=== PATIENT | female | born 1960 ===

== ENCOUNTER 2017-01-21 17:53 | Emergency (ER) | payer MEDICARE, MEDICAID ==
[2017-01-21 17:54] VITALS: BMI 30.9
[2017-01-21] MEDS ORDERED: Sodium Chloride 0.9% 1,000 ML IV ONE (18:59)
[2017-01-21] MEDS ORDERED: Iohexol 240 (50 ml) PO ONE (19:04)
[2017-01-21 19:11] LABS: EOS % 0.4 % (0.0-4.0); HEMATOCRIT 35.4 % (34.0-47.0); LYMPH # 0.4 K/uL (1.0-4.3); LYMPH % 5.3 % (20.0-40.0); MEAN CELL VOLUME 89.3 fL (81.0-99.0); MEAN CORPUSCULAR HEMOGLOBIN 29.4 pg (27.0-31.0); MEAN PLATELET VOLUME 9.6 fL (7.2-11.7); MONO # 0.3 K/uL (0.0-0.8); MONO % 4.4 % (0.0-10.0); PLATELET COUNT 253 K/uL (130-400); RED CELL DISTRIBUTION WIDTH 13.5 % (11.5-14.5); WHITE BLOOD COUNT 7.1 K/uL (4.8-10.8)
[2017-01-21] MEDS ORDERED: Iohexol 240 (50 ml) ONE (19:15)
[2017-01-21] MEDS ORDERED: Sodium Chloride 0.9% 1,000 ML ONE (19:15)
[2017-01-21 19:18] LABS: CHLORIDE 98 mmol/L (98-107); POTASSIUM 3.3 mmol/L (3.6-5.2); SODIUM 136 mmol/L (132-148)
[2017-01-21 19:20] LABS: BILIRUBIN,TOTAL 0.5 mg/dL (0.2-1.3); CARBON DIOXIDE 28 mmol/L (22-30); GFR AFRICAN-AMERICAN > 60
[2017-01-21 19:21] LABS: ALB/GLOB RATIO 1.5 (1.0-2.1); ALKALINE PHOSPHATASE 62 U/L (38-126); ALT/SGPT 41 U/L (9-52); AST/SGOT 31 U/L (14-36); BLOOD UREA NITROGEN 15 mg/dL (7-17); CALCIUM 8.5 mg/dl (8.6-10.4); GLUCOSE,RANDOM 124 mg/dL (65-105); TOTAL PROTEIN 7.1 g/dL (6.3-8.3)
[2017-01-21 20:01] LABS: EOSINOPHIL 1 % (0-4); NEUTROPHIL 91 % (50-75); TOTAL CELLS COUNTED 100
--- NOTE | 2017-01-21 20:03 | C.PDOC ---
History Of Present Illness 56 year old female presents to the ED with complaints of epigastric pain that extends across the mid upper abdomen beginning yesterday. Patient states she is also experiencing vomiting and diarrhea, with 10 episodes of vomiting since yesterday and about 5-6 episodes of watery, non bloody diarrhea. She notes she is unable to tolerate any food by mouth and has a history of chronic constipation. Patient states had been on stool softeners but in September started taking polyethylene glycol three times a day. She feels no relief and still does not have normal bowel movements. She denies any fever, lightheadedness, or other complaints at this time. Time Seen by Provider: 01/21/17 18:55 Chief Complaint (Nursing): Abdominal Pain History Per: Patient History/Exam Limitations: no limitations Onset/Duration Of Symptoms: Days (since yesterday ) Current Symptoms Are (Timing): Still Present Location Of Pain/Discomfort: Epigastric, Other (pain to upper abdomen also ) Quality Of Discomfort: "Pain" Associated Symptoms: Vomiting, Diarrhea. denies: Fever, Chills Recent travel outside of the [place]: No Abnormal Vaginal Bleeding: No Past Medical History Reviewed: Historical Data, Nursing Documentation, Vital Signs Vital Signs: Last Vital Signs Temp 100.5 F H 01/21/17 22:40 Pulse 83 01/21/17 22:40 Resp 17 01/21/17 22:40 BP 135/63 01/21/17 22:40 Pulse Ox 96 01/21/17 22:40 - Medical History PMH: Anxiety, Arthritis, Bipolar Disorder, Depression, Diabetes (type 2), GERD, HTN Surgical History: (4 ) Other Surgeries: Hysterectomy Family History: States: Unknown Family Hx - Social History Hx Tobacco Use: Yes (pack/day for 3 yrs) Hx Alcohol Use: No Hx Substance Use: No - Immunization History Hx Tetanus Toxoid Vaccination: No Hx Influenza Vaccination: No Hx Pneumococcal Vaccination: No Review Of Systems Constitutional: Negative for: Fever, Chills, Sweats Cardiovascular: Negative for: Chest Pain, Palpitations Respiratory: Negative for: Cough, Shortness of Breath Gastrointestinal: Positive for: Vomiting (10 episodes since yesterday), Abdominal Pain (epigastric), Diarrhea (approximately 5-6 episodes since yesterday ) Neurological: Negative for: Headache Physical Exam - Physical Exam Appears: Non-toxic, No Acute Distress Skin: Warm, Dry Head: Atraumatic Oral Mucosa: Moist Neck: Supple Chest: Symmetrical, No Deformity Cardiovascular: Rhythm Regular Respiratory: No Rales, No Rhonchi, No Stridor, No Wheezing Gastrointestinal/Abdominal: Soft, Tenderness (epigastric tenderness), No Distention, No Guarding, No Rebound Extremity: Normal ROM, No Tenderness Neurological/Psych: Oriented x3 ED Course And Treatment - Laboratory Results Result Diagrams: 01/21/17 19:07 01/21/17 19:07 Lab Interpretation: No Acute Changes Interpretation Of ECG: Patient still c/o generalized abdominal pain. CT abdomen and pelvis ordered. O2 Sat by Pulse Oximetry: 98 (room air ) Pulse Ox Interpretation: Normal - CT Scan/US CT ABDOMEN AND ABDOMEN W/ IV CONTRAST Other Rad Studies (CT/US): Read By Radiologist, Radiology Report Reviewed CT/US Interpretation: EXAM: CT Abdomen and Pelvis With Intravenous Contrast. CLINICAL HISTORY: 56 years old, female; Pain; Abdominal pain; Generalized; Additional info: Abd pain. TECHNIQUE: Axial computed tomography images of the abdomen and pelvis with intravenous contrast. This CT. exam was performed using one or more of the following dose reduction techniques: automated. exposure control, adjustment of the mA and/or kV according to patient size, and/ or use of iterative. reconstruction technique. Coronal and sagittal reformatted images were created and reviewed. CONTRAST: 100 mL of [id number] administered intravenously. COMPARISON: No relevant prior studies available. FINDINGS: Lower thorax: Lung bases clear without infiltrates or lobar pneumonia. ABDOMEN: Liver: Liver is morphologically normal without lesions or abnormal enhancement. Hepatic and portal. veins are patent. Gallbladder and bile ducts: Unremarkable. No calcified stones. No ductal dilation. No significant. wall thickening. Pancreas: Normal pancreas without surrounding fluid or inflammation. No ductal dilation. Spleen: Unremarkable. No splenomegaly. Adrenals: The adrenal glands are normal. Kidneys and ureters: Unremarkable. No solid mass. No hydronephrosis. Stomach and bowel: The stomach is normal without gastric wall thickening or mucosal edema. Bowel loops appear within normal limits, no signs of wall thickening, mucosal edema, or bowel. distention. Appendix: A normal appendix seen in the right lower quadrant. PELVIS: Bladder: The bladder is decompressed but otherwise normal. Reproductive: Hysterectomy changes are seen. Ovaries are normal. ABDOMEN and PELVIS: Intraperitoneal space: Unremarkable. No free air. No significant fluid collection. Bones/joints: No acute fracture. No dislocation. Soft tissues: There is a midline laparatomy scar in the subcutaneous tissues. Vasculature: The aorta and IVC appear within normal limits. . Lymph nodes: Unremarkable. No enlarged lymph nodes. IMPRESSION: No acute process in the abdomen and pelvis. Post surgical changes in the pelvis as described. No. evidence for bowel herniation, bowel obstruction, colitis, appendicitis or diverticulitis. Reevaluation Time: 23:06 Reassessment Condition: Improved (Patient able to tolerate po fluids for CT scan. Still with mild discomfort treated with Bentyl IM.) Disposition Counseled Patient/Family Regarding: Studies Performed, Diagnosis, Need For Followup, Rx Given - Disposition Referrals: Greyson Souza MD [Medical Doctor] - Disposition: HOME/ ROUTINE Disposition Time: 23:07 Condition: IMPROVED Prescriptions: Dicyclomine [Bentyl] 20 mg PO QID PRN #20 tab PRN Reason: Pain, Severe (8-10) Ondansetron ODT [Zofran ODT] 1 odt PO QID PRN #10 odt PRN Reason: Nausea/Vomiting - Clinical Impression Clinical Impression: Abdominal pain - Scribe Statement The provider has reviewed the documentation as recorded by the Scribe Cindy Tinajero All medical record entries made by the Scribe were at my direction and personally dictated by me. I have reviewed the chart and agree that the record accurately reflects my personal performance of the history, physical exam, medical decision making, and the department course for this patient. I have also personally directed, reviewed, and agree with the discharge instructions and disposition.
[2017-01-21] MEDS ORDERED: Iodixanol 320 MG/ML 100 ML BOTTLE IV ONE (21:49)
[2017-01-21 22:29] LABS: RBC URINE < 1 /hpf (0-3); URINE BACTERIA RARE (<OCC); URINE BILIRUBIN NEGATIVE (NEGATIVE); URINE BLOOD NEGATIVE (NEGATIVE); URINE COLOR Yellow (YELLOW); URINE GLUCOSE (UA) NORMAL (Normal); URINE KETONE NEGATIVE (NEGATIVE); URINE LEUKOCYTE ESTERASE NEG Leu/uL (Negative); URINE PROTEIN NEGATIVE (NEGATIVE); URINE UROBILINOGEN NORMAL mg/dL (0.2-1.0); WBC URINE 1 /hpf (0-5)
[2017-01-21 22:44] VITALS: TEMP 100.5
[2017-01-21 22:46] VITALS: BP 135/63; PULSE 83; RESP 17
[2017-01-21 23:09] VITALS: O2SAT 98
--- NOTE | 2017-01-22 08:14 | CT ---
PROCEDURE: CT Abdomen and Pelvis with contrast HISTORY: Abdominal pain COMPARISON: None. TECHNIQUE: Multiple contiguous axial images were performed through the abdomen and pelvis with intravenous contrast. Subsequently, sagittal and coronal reformatted images were obtained. Radiation dose: Total exam DLP = 902 mGy-cm. This CT exam was performed using one or more of the following dose reduction techniques: Automated exposure control, adjustment of the mA and/or kV according to patient size, and/or use of iterative reconstruction technique. FINDINGS: LOWER THORAX: Unremarkable. LIVER: Unremarkable. No gross lesion or ductal dilatation. GALLBLADDER AND BILE DUCTS: Unremarkable. PANCREAS: Unremarkable. No gross lesion or ductal dilatation. SPLEEN: Unremarkable. ADRENALS: Unremarkable. No mass. KIDNEYS AND URETERS: Unremarkable. No hydronephrosis. No solid mass. VASCULATURE: Mild calcification and plaque within the aorta. BOWEL: Under distended and or mildly thickened distal descending and sigmoid colon. Small punctate calcific foci seen at the level of the proximal sigmoid colon on series 3, image 161. Under distended and or mildly prominent stomach. APPENDIX: Normal appendix. PERITONEUM: Unremarkable. No free fluid. No free air. LYMPH NODES: Unremarkable. No enlarged lymph nodes. BLADDER: Decompressed urinary bladder. REPRODUCTIVE: Prior hysterectomy. BONES: Degenerative changes in the spine with paravertebral osteophytes. OTHER FINDINGS: Midline laparotomy scar in the subcutaneous soft tissues. IMPRESSION: Under distended and or mildly thickened distal descending and sigmoid colon. Small punctate calcific foci seen at the level of the proximal sigmoid colon on series 3, image 161. Clinical correlation. Under distended and or mildly prominent stomach wall. Postsurgical changes the pelvis as described. Additional findings as above. These findings were preliminarily reported at 10:34 p.m. on 01/21/[address] Sarabjit Dueñas from [facility].
--- NOTE | 2017-01-22 09:11 | RAD ---
HISTORY: abdominal pain COMPARISON: 09/06/2016 TECHNIQUE: Chest PA and lateral FINDINGS: LUNGS: No active pulmonary disease. PLEURA: No significant pleural effusion identified. No pneumothorax apparent. CARDIOVASCULAR: Normal. OSSEOUS STRUCTURES: No significant abnormalities. VISUALIZED UPPER ABDOMEN: Normal. OTHER FINDINGS: None. IMPRESSION: No active disease.
== END 2017-01-21 23:29 | disposition home or self-care (01) ==
LOC: C.ER 17:53
DX: R10.9 Unspecified abdominal pain (principal)
CPT/HCPCS: 71020; 74177; 80053; 81001; 83690; 85025; 96361; 96372; 96374; 99284; J0500; J2405; J7040; Q9966; Q9967

== ENCOUNTER 2017-05-30 05:29 | Day surgery (SDC) | payer MEDICARE, MEDICAID ==
[2017-05-30 06:36] VITALS: BMI 32.2
[2017-05-30] MEDS ORDERED: Lidocaine Hydrochloride 5 ML INJ ONE (08:29)
[2017-05-30] MEDS ORDERED: Pantoprazole 40 mg EC Tab PO STA (08:29)
[2017-05-30] MEDS ORDERED: Propofol 10 mg/ml Inj (20 ML) ONE (08:29)
--- NOTE | 2017-05-30 08:29 | CP.SDSHP ---
Same Day Surgery H & P - History Proposed Procedure: Egd. Colonoscopy Pre-Op Diagnosis: epigastric pain. heartburn. constipation. screening for colon cancer - Previous Medical/Surgical History Cardiac: Hypertension Endocrine/Metabolic: Diabetes, Obesity Misc: Other (Bipolar Disorder) Previous Surgical History: x 4. PIYUSH - Allergies Allergies: Allergies ibuprofen Allergy (Verified 04/29/17 10:25) RASH Penicillins Allergy (Verified 04/29/17 10:25) RASH strawberry Allergy (Verified 04/29/17 10:25) VOMITING - Physical Exam Vital Signs: Vital Signs 05/30/17 06:36 Temperature 97.5 F L Pulse Rate 57 L Respiratory 19 Rate Blood Pressure 128/67 O2 Sat by Pulse 99 Oximetry Mental Status: Alert & Oriented x3 Neuro: WNL Heart: WNL Lungs: WNL GI: WNL - Impression Impression: heartburn. epigastric pain. constipation. screening for colon cancer Pt. Evaluated Today:Candidate for Anesthesia & Procedure: Yes - Date & Time Date: 05/30/17 Time: 08:28 Short Stay Discharge - Short Stay Discharge Admitting Diagnosis/Reason for Visit: SCREENING / HEARTBURN / EPIGASTRIC PAIN Disposition: HOME/ ROUTINE
[2017-05-30] MEDS ORDERED: Lactated Ringer's 500 ML IV ONE (08:34)
[2017-05-30 08:45] VITALS: O2SAT 100
[2017-05-30 09:35] VITALS: TEMP 96
[2017-05-30 12:32] VITALS: BP 130/501; PULSE 56; RESP 18
== END 2017-05-30 10:10 | disposition home or self-care (01) ==
LOC: C.ENDO 05:29
PROVIDERS: ATTEND Internal Medicine Gastroenterology
DX: Z12.11 Encounter for screening for malignant neoplasm of colon (principal); K57.30 Diverticulosis of large intestine without perforation or abscess without bleeding; K29.70 Gastritis, unspecified, without bleeding; K21.0 Gastro-esophageal reflux disease with esophagitis; K44.9 Diaphragmatic hernia without obstruction or gangrene; K64.8 Other hemorrhoids
CPT/HCPCS: 43239; 45378; 82948; 88305; J2704; J7120

== ENCOUNTER 2018-11-21 07:33 | Outpatient (CLI) | payer MEDICARE, MEDICAID | END 2018-11-21 07:34 | disposition home or self-care (01) | LOC: C.MRIC 07:33 | DX: M54.12 Radiculopathy, cervical region (principal); M51.16 Intervertebral disc disorders with radiculopathy, lumbar region; M25.78 Osteophyte, vertebrae ==